=== PATIENT | female | born 1995 | race American Indian/Alaskan Native ===

== ENCOUNTER 2019-06-10 23:03 | Emergency (ER) | payer SELFPAY ==
[2019-06-10 23:31] VITALS: BP 137/84
--- NOTE | 2019-06-11 01:01 | Emergency Department Report ---
- General Chief complaint: Allergic Reaction Stated complaint: POSS BUG BITES BOTH ARMS AND HANDS Time Seen by Provider: 06/11/19 00:29 Source: patient Mode of arrival: Ambulatory Limitations: No Limitations - History of Present Illness Initial comments: pt is a 23-year-old female presents emergency room with complaints of insect bites to bilateral arms that occurred yesterday. She did not see or feel anything bite her. She states she has associated itching. She states that she did sleep in a different place. Denies anyone else with the same rash. She denies any fever or drainage. She denies any facial swelling, throat swelling, difficulty swallowing, difficulty breathing. She has a past medical history of ulcerative colitis. She denies any allergies medications. - Related Data Previous Rx's Medication Instructions Recorded Last Taken Type Hydrocortisone 1% [Hydrocortisone 1 applicatio TP TID #1 tube 06/11/19 Unknown Rx 1% CREAM] Permethrin 5% [Acticin 5% CREAM] 1 applicatio TP ONCE #1 tube 06/11/19 Unknown Rx Allergies Allergy/AdvReac Type Severity Reaction Status Date / Time No Known Allergies Allergy Unverified 06/10/19 23:34 Abscess Boil HPI - HPI Chief Complaint: Allergic Reaction Stated Complaint: POSS BUG BITES BOTH ARMS AND HANDS Time Seen by Provider: 06/11/19 00:29 Home Medications: Previous Rx's Medication Instructions Recorded Last Taken Type Hydrocortisone 1% [Hydrocortisone 1 applicatio TP TID #1 tube 06/11/19 Unknown Rx 1% CREAM] Permethrin 5% [Acticin 5% CREAM] 1 applicatio TP ONCE #1 tube 06/11/19 Unknown Rx Allergies/Adverse Reactions: Allergies Allergy/AdvReac Type Severity Reaction Status Date / Time No Known Allergies Allergy Unverified 06/10/19 23:34 ED Review of Systems ROS: Stated complaint: POSS BUG BITES BOTH ARMS AND HANDS Other details as noted in HPI Comment: All other systems reviewed and negative ED Past Medical Hx - Past Medical History Previous Medical History?: Yes Hx Asthma: Yes Additional medical history: Ulcerative Colitis - Surgical History Past Surgical History?: No - Social History Smoking Status: Light Tobacco Smoker Substance Use Type: Alcohol - Medications Home Medications: Home Medications Medication Instructions Recorded Confirmed Last Taken Type Hydrocortisone 1% [Hydrocortisone 1 applicatio TP TID #1 tube 06/11/19 Unknown Rx 1% CREAM] Permethrin 5% [Acticin 5% CREAM] 1 applicatio TP ONCE #1 tube 06/11/19 Unknown Rx ED Physical Exam - General Limitations: No Limitations General appearance: alert, in no apparent distress - Head Head exam: Present: atraumatic, normocephalic - Eye Eye exam: Present: normal appearance - ENT ENT exam: Present: mucous membranes moist - Respiratory Respiratory exam: Present: normal lung sounds bilaterally. Absent: respiratory distress, wheezes, rales, rhonchi, stridor, chest wall tenderness, accessory muscle use, decreased breath sounds, prolonged expiratory - Cardiovascular Cardiovascular Exam: Present: regular rate, normal rhythm, normal heart sounds. Absent: systolic murmur, diastolic murmur, rubs, gallop - Neurological Exam Neurological exam: Present: alert, oriented X3 - Psychiatric Psychiatric exam: Present: normal affect, normal mood - Skin Skin exam: Present: warm, dry, other (multiple small erythematous papules with small amount of surrounding erythema present to the bilateral arms, no increased warmth, no drainage, no blisters, no necrosis) ED Course Vital Signs 06/10/19 23:15 Temperature 98.8 F Pulse Rate 86 Respiratory 14 Rate Blood Pressure 137/84 O2 Sat by Pulse 98 Oximetry ED Medical Decision Making - Medical Decision Making pt is a 23-year-old female presents emergency room with complaints of insect bites to bilateral arms that occurred yesterday. She did not see or feel anything bite her. She states she has associated itching. She states that she did sleep in a different place. Denies anyone else with the same rash. She denies any fever or drainage. She denies any facial swelling, throat swelling, difficulty swallowing, difficulty breathing. She has a past medical history of ulcerative colitis. She denies any allergies medications. VSS. on exam: multiple small erythematous papules with small amount of surrounding erythema present to the bilateral arms, no increased warmth, no drainage, no blisters, no necrosis. examination consistent with insect bites such as mosquito bites versus bedbug bites. She given prescription for permethrin cream and hydrocortisone cream. advised pt to Please use medication as prescribed. May take Benadryl [id number] for itching. Follow-up with a primary care doctor in the next 2-3 days. Return to the emergency room for any new or worsening symptoms. Critical care attestation.: If time is entered above; I have spent that time in minutes in the direct care of this critically ill patient, excluding procedure time. ED Disposition Clinical Impression: Insect bites Qualifiers: Encounter type: initial encounter Site of insect bite: upper arm Laterality: unspecified laterality Qualified Code(s): S40.869A - Insect bite (nonvenomous) of unspecified upper arm, initial encounter Disposition: TO HOME OR SELFCARE Is pt being admited?: No Does the pt Need Aspirin: No Condition: Stable Instructions: Insect Bite or Sting (ED) Additional Instructions: Please use medication as prescribed. May take Benadryl [id number] for itching. Follow-up with a primary care doctor in the next 2-3 days. Return to the emergency room for any new or worsening symptoms. Prescriptions: Permethrin 5% [Acticin 5% CREAM] 1 applicatio TP ONCE #1 tube Hydrocortisone 1% [Hydrocortisone 1% CREAM] 1 applicatio TP TID #1 tube Referrals: SHARMIN QUINN MD [Staff Physician] - 2-3 Days Time of Disposition: 01:00 Print Language: JAPANESE
== END 2019-06-11 01:10 | disposition home or self-care (01) ==
LOC: ED 23:03
DX: S40.861A Insect bite (nonvenomous) of right upper arm, initial encounter (principal); S40.862A Insect bite (nonvenomous) of left upper arm, initial encounter; J45.909 Unspecified asthma, uncomplicated; F17.200 Nicotine dependence, unspecified, uncomplicated; Z79.899 Other long term (current) drug therapy; W57.XXXA Bitten or stung by nonvenomous insect and other nonvenomous arthropods, initial encounter; Y93.89 Activity, other specified; Y92.89 Other specified places as the place of occurrence of the external cause; Y99.8 Other external cause status
CPT/HCPCS: 99282

== ENCOUNTER 2019-07-19 20:13 | Emergency (ER) | payer SELFPAY ==
[2019-07-19] MEDS ORDERED: IBUPROFEN 800 MG TAB ONE (21:32)
--- NOTE | 2019-07-19 21:45 | Emergency Department Report ---
HPI - General Chief Complaint: Sore Throat Time Seen by Provider: 07/19/19 21:26 - HPI HPI: 23-year-old [place] female presents to the emergency department from home with a complaint of a 2 day history of subjective fever, chills, sore throat, body aches and a cough. She has a past medical history of asthma and ulcerative colitis. She has tried some Coricidin and Mucinex and Elderberry syrup without much relief. She is an occasional tobacco smoker. She does not have a primary care physician. No recent travel or sick contacts at home. ED Past Medical Hx - Past Medical History Previous Medical History?: Yes Hx Asthma: Yes Additional medical history: Ulcerative Colitis - Surgical History Past Surgical History?: No - Social History Smoking Status: Never Smoker Substance Use Type: None - Medications Home Medications: Home Medications Medication Instructions Recorded Confirmed Last Taken Type Hydrocortisone 1% [Hydrocortisone 1 applicatio TP TID #1 tube 06/11/19 Unknown Rx 1% CREAM] Permethrin 5% [Acticin 5% CREAM] 1 applicatio TP ONCE #1 tube 06/11/19 Unknown Rx Azithromycin [Zithromax Z-LEANNE] 250 mg PO DAILY #6 tab 07/19/19 Unknown Rx Benzonatate [Tessalon Perles] 100 mg PO Q8HR PRN #20 capsule 07/19/19 Unknown Rx ED Review of Systems ROS: Stated complaint: SORE THROAT BODY PAIN CHILLS Other details as noted in HPI Constitutional: chills, fever Eyes: denies: eye pain, vision change ENT: throat pain. denies: ear pain Respiratory: cough. denies: shortness of breath Cardiovascular: denies: chest pain, palpitations Gastrointestinal: denies: abdominal pain, vomiting Musculoskeletal: myalgia. denies: joint swelling Neurological: denies: headache, weakness Physical Exam - Physical Exam Vital Signs: Vital Signs 07/19/19 21:27 Temperature 100.5 F H Pulse Rate 89 Respiratory 18 Rate Blood Pressure 144/82 [Right] O2 Sat by Pulse 97 Oximetry Physical Exam: GENERAL: The patient is well-developed well-nourished. HEENT: Normocephalic. Atraumatic. Patient has moist mucous membranes. Patient has severe tonsillar hypertrophy with mild erythema. No exudates. No drooling or trismus. EYES: Extraocular motions are intact. NECK: Supple. Trachea is midline CHEST/LUNGS: Clear to auscultation. No cough heard during examination. There is no respiratory distress noted. HEART/CARDIOVASCULAR: Regular. There is no tachycardia. ABDOMEN: Obese habitus. SKIN: Skin is warm and dry. NEURO: The patient is awake, alert, and oriented. The patient is cooperative. The patient has no focal neurologic deficits. Normal speech. MUSCULOSKELETAL: There is no tenderness or deformity. There is no evidence of acute injury. ED Course Vital Signs 07/19/19 21:27 Temperature 100.5 F H Pulse Rate 89 Respiratory 18 Rate Blood Pressure 144/82 [Right] O2 Sat by Pulse 97 Oximetry ED Medical Decision Making - Radiology Data Radiology results: image reviewed interpreted by me: Chest x-ray does not show any pneumonia, pneumothorax, focal consolidation, pleural effusions, or any other acute process. - Medical Decision Making Patient presents with a 2 day history of sore throat, cough, body aches and presents with a fever of 100.5F. Given some ibuprofen for body aches and fever. She was negative for influenza and rapid strep. Chest x-ray did not show any pneumonia or any other acute process. Given the fact that her tonsils are basically touching and that the rapid strep test is not 100% sensitive, she will be treated with some Decadron and azithromycin. She is instructed to follow up with primary care and will return to the ER with any worsening of her symptoms or any acute distress. - Differential Diagnosis strep pharyngitis, influenza, pneumonia, viral URI Critical Care Time: No Critical care attestation.: If time is entered above; I have spent that time in minutes in the direct care of this critically ill patient, excluding procedure time. ED Disposition Clinical Impression: Cough Pharyngitis Qualifiers: Pharyngitis/tonsillitis etiology: unspecified etiology Qualified Code(s): J02.9 - Acute pharyngitis, unspecified Fever Qualifiers: Fever type: unspecified Qualified Code(s): R50.9 - Fever, unspecified Disposition: DC-01 TO HOME OR SELFCARE Is pt being admited?: No Condition: Stable Instructions: Strep Throat (ED), Fever in Adults (ED), Upper Respiratory Infection (ED) Additional Instructions: Please follow up with a primary care physician in the next few days. Return to the emergency Department with any worsening of your symptoms or any acute distress. You can take Tylenol every 4-6 hours and ibuprofen every 6-8 hours, using weight-based dosing on the back of the bottle, as needed for any fever or discomfort. Prescriptions: Benzonatate [Tessalon Perles] 100 mg PO Q8HR PRN #20 capsule PRN Reason: Cough Azithromycin [Zithromax Z-LEANNE] 250 mg PO DAILY #6 tab Referrals: SHARMIN QUINN MD [Staff Physician] - 3-5 Days [facility] [Outside] - 3-5 Days Forms: Work/School Release Form(ED) Time of Disposition: 22:40
[2019-07-19] MEDS ORDERED: IBUPROFEN 800 MG TAB PO ONE (22:05)
--- NOTE | 2019-07-19 22:23 | XRay Report ---
. CHEST 2 VIEWS INDICATION / CLINICAL INFORMATION: cough with fever. COMPARISON: None available. FINDINGS: SUPPORT DEVICES: None. HEART / MEDIASTINUM: No significant abnormality. LUNGS / PLEURA: No significant pulmonary or pleural abnormality. No pneumothorax. ADDITIONAL FINDINGS: No significant additional findings. IMPRESSION: 1. No acute findings. Signer Name: Kedar Mason MD Signed: 07/19/2019 10:19 PM Workstation Name: [id number]
[2019-07-19] MEDS ORDERED: DEXAMETHASONE 4 MG TAB PO ONE (22:34)
[2019-07-19 23:25] VITALS: BP 132/76
== END 2019-07-19 23:25 | disposition home or self-care (01) ==
LOC: ED 20:13
DX: J02.9 Acute pharyngitis, unspecified (principal); J45.909 Unspecified asthma, uncomplicated; Z79.899 Other long term (current) drug therapy
CPT/HCPCS: 71046; 87116; 87400; 87430; 99284; J8540